=== PATIENT | female | born 1950 | race Caucasian/White ===

== ENCOUNTER 2018-05-24 05:48 | Day surgery (SDC) | payer MEDICARE, BC ==
[2018-05-24] MEDS ORDERED: PROPOFOL 200 MG INJ (07:00)
[2018-05-24] MEDS ORDERED: PROPOFOL 40 ML (07:12)
[2018-05-24] MEDS ORDERED: LIDOCAINE 2% (SDV) 5 ML INJ (07:12)
== END 2018-05-24 08:45 | disposition home or self-care (01) ==
LOC: GIL 05:48
DX: K44.9 Diaphragmatic hernia without obstruction or gangrene (principal); K21.0 Gastro-esophageal reflux disease with esophagitis; D13.1 Benign neoplasm of stomach
CPT/HCPCS: 43239; 88305; 88312